=== PATIENT | female | born 1990 | race Caucasian/White ===

== ENCOUNTER → 2016-03-21 | Outpatient (CLI) | payer BC ==
--- NOTE | 2016-03-23 08:27 | MAMMOGRAPHY REPORT ---
ULTRASOUND OF BOTH BREASTS: 03/21/2016 CLINICAL HISTORY: 25-year-old female with cyclical breast pain for approximately one year, most prom inent in the upper inner quadrant of the right breast. Family history of breast cancer = mother. P atient denies palpable mass, skin changes or nipple discharge. COMPARISON: No prior exams were available for comparison. FINDINGS: Real-time high-resolution ultrasound was performed in the area of pain pointed out by the patient (1:00 right breast, 5 cm from the nipple). Within this location and throughout the remaind er of the upper inner quadrant of the right breast, normal fiber glandular tissue is seen without a discrete solid or cystic mass. IMPRESSION: ACR BI-RADS CATEGORY 1: NEGATIVE There is no sonographic evidence of malignancy or other suspicious abnormality in the upper inner qu adrant of the right breast, in the area of pain pointed out by the patient. Clinical follow-up is r ecommended for the cyclical mastalgia. These results and recommendations were discussed with the melony ramos at the time of the exam. Yolie Pritchard M.D. ay/:03/21/2016 09:43:54 [employer]er: Dr. Yolie Pritchard, [facility] letter sent: Normal 1/2 BI-RADS Code: ACR BI-RADS Category 1: Negative
== END | disposition home or self-care (01) ==
LOC: C.MAMM 09:26
PROVIDERS: ATTEND Nurse Practitioner Family
DX: N64.4 Mastodynia (principal)